=== PATIENT | male | born 1990 | race Caucasian/White ===

== ENCOUNTER 2018-07-16 16:42 | Emergency (ER) | payer BC, OTHER ==
--- NOTE | 2018-07-16 17:25 | ED.PDOC ---
History of Present Illness - General Chief Complaint: Trauma Time Seen by Provider: 07/16/18 17:22 Source: patient, RN notes reviewed Additional Information: 27 YEAR OLD BUCKED OFF A HORSE 2 HOURS PRIOR TO COMING REPORTS HE WAS HALLUCINATING HAVING " DEJAVUE " NO LOC HE GOT UP IMMEDIATELY HAS NO HEADACHE NO SCALP HEMATOMA OR BRUISE NO AMNESIA TO THE EVENT NO NAUSEA VOMITING NO BLOOD OR FLUID DRAINAGE FROM ENT HE HAS NO NECK PAIN HE HAD MINOR PAIN ON PALPATION OF THE RIGHT UPPER LATERAL RIB WHERE HE HAD LANDED BUT NO BRUISING OF THE CHEST WALL - History of Present Illness Timing/Duration: 4-6 hours Severity: mild Improving Factors: nothing Worsening Factors: nothing Associated Symptoms: denies symptoms Review of Systems - Review of Systems Constitutional: States: no symptoms reported EENTM: States: no symptoms reported Respiratory: States: no symptoms reported Cardiology: States: no symptoms reported Gastrointestinal/Abdominal: States: no symptoms reported Genitourinary: States: no symptoms reported Musculoskeletal: States: no symptoms reported Skin: States: no symptoms reported Neurological: States: no symptoms reported Endocrine: States: no symptoms reported Hematologic/Lymphatic: States: no symptoms reported Physical Exam - Physical Exam General Appearance: Alert, Comfortable Eye Exam: bilateral normal Ears, Nose, Throat: hearing grossly normal, normal ENT inspection, normal pharynx Neck: non-tender, full range of motion, supple Respiratory: chest non-tender, lungs clear, normal breath sounds, no respiratory distress, no accessory muscle use Cardiovascular/Chest: normal peripheral pulses, regular rate, rhythm, no edema, no gallop, no JVD Gastrointestinal/Abdominal: normal bowel sounds, non tender, soft, no organomegaly Back Exam: normal inspection, no CVA tenderness Extremity: normal range of motion, non-tender, normal inspection Neurologic: [employer] II-XII nml as tested, no motor/sensory deficits, alert, normal mood/affect, oriented x 3 Skin Exam: normal color, warm/dry Departure - Departure Clinical Impression: Minor closed head injury, Contusion of chest wall Time of Disposition: 17:30 Disposition: Discharge to Home or Self Care Condition: Good Departure Forms: ED Discharge - Pt. Copy, Patient Portal Self Enrollment Comments: PLEASE RETURN IF YOU DEVELOP HEADACHE VOMITNIG CHANGE IN MENTAL STATUS
[2018-07-16 17:33] VITALS: TEMP 99.3; O2SAT 96
[2018-07-16 17:40] VITALS: BP 144/79
== END 2018-07-16 17:39 | disposition home or self-care (01) ==
LOC: ER 16:42
DX: S09.90XA Unspecified injury of head, initial encounter (principal); S20.211A Contusion of right front wall of thorax, initial encounter; V80.010A Animal-rider injured by fall from or being thrown from horse in noncollision accident, initial encounter; Y93.52 Activity, horseback riding